=== PATIENT | male | born 1935 | race Caucasian/White ===

== ENCOUNTER 2021-08-08 16:57 | Emergency (ER) | payer OTHER ==
[~2021-08-08] VITALS: Ht 172.7 cm; Wt 77.1 kg
[2021-08-08] MEDS ORDERED: ASPIRIN (17:07)
[2021-08-08] MEDS ORDERED: ATENOLOL (17:07)
[2021-08-08] MEDS ORDERED: INSULIN (17:07)
[2021-08-08] MEDS ORDERED: HYTRIN (17:07)
[2021-08-08] MEDS ORDERED: LEVOTHYROXINE (17:07)
[2021-08-08] MEDS ORDERED: LIPITOR (17:07)
--- NOTE | 2021-08-08 17:11 | NUR ---
DR Reece at the bedside for MSE.
[2021-08-08 17:24] LABS: HEMATOCRIT 36.7 % (36.7-47.1); MEAN CORPUSCULAR HEMOGLOBIN 31.2 uug (23.8-33.4); MEAN CORPUSCULAR VOLUME 91.9 fL (73.0-96.2); PLATELET COUNT (AUTO) 211 K/uL (152-348)
[2021-08-08 17:52] LABS: CARBON DIOXIDE 25 mmol/L (21-32); CHLORIDE 102 mmol/L (98-107); CREATININE 1.6 mg/dL (0.6-1.3); GLUCOSE 144 mg/dL (74-106); POTASSIUM 4.5 mmol/L (3.5-5.1); UREA NITROGEN, BLOOD 25 mg/dL (7-18)
[2021-08-08 18:04] LABS: ALANINE AMINOTRANSFERASE 222 U/L (16-63); ALKALINE PHOSPHATASE 146 U/L (50-136); ASPARTATE AMINOTRANSFERASE 176 U/L (15-37); BILIRUBIN,DIRECT 0.3 mg/dL (0.0-0.2); BILIRUBIN,TOTAL 1.1 mg/dL (0.2-1.0); TOTAL PROTEIN, SERUM 7.1 g/dL (6.4-8.2)
[2021-08-08 18:39] LABS: *BILIRUBIN,URIN NEGATIVE (NEGATIVE); *BLOOD, URINE NEGATIVE (NEGATIVE); *CLARITY,URINE CLEAR (CLEAR); *COLOR,URINE YELLOW (YELLOW); *KETONES,URINE NEGATIVE (NEGATIVE); *UROBILINOGEN,URINE 0.2 E.U./dl (NORMAL); LEUKOCYTE ESTERASE ,URINE NEGATIVE (NEGATIVE); NITRITE, URINE NEGATIVE (NEGATIVE); PH,URINE 7.5 (5.0-8.0); UGLUCOSE TRACE (NEGATIVE)
[2021-08-08] MEDS ORDERED: CEFTRIAXONE 1 G in IV DEXTROSE 5% 50 ML IV ONE (19:00)
[2021-08-08] MEDS ORDERED: CEFTRIAXONE /D5W 50ML IVPB **ER PYXIS IV ONE (19:07)
--- NOTE | 2021-08-08 19:28 | NUR ---
Patient's brother at bedside
--- NOTE | 2021-08-08 19:42 | NUR ---
Called Fermin DOUGLASS
--- NOTE | 2021-08-08 20:32 | NUR ---
Patient and Patient's brother does not wish to proceed with medical care recommended by Dr. Rodriguez. Information given related to possible complications, up to and including , which could occur as a result of leaving the hospital at this time. Patient and patient's brother verbalizes understanding of risks involved due to leaving against medical advice.
[2021-08-08 20:36] VITALS: BP 124/61
--- NOTE | 2021-08-08 20:36 | NUR ---
Patient refused to sign AMA and left after talking to Dr Rodriguez
== END 2021-08-08 21:00 | disposition left against medical advice (07) ==
LOC: ER 16:59
DX: R41.82 Altered mental status, unspecified (principal); D72.829 Elevated white blood cell count, unspecified; N28.9 Disorder of kidney and ureter, unspecified; R74.01 Elevation of levels of liver transaminase levels; E03.9 Hypothyroidism, unspecified; I25.2 Old myocardial infarction; E78.5 Hyperlipidemia, unspecified; E11.9 Type 2 diabetes mellitus without complications; Z79.4 Long term (current) use of insulin; Z79.82 Long term (current) use of aspirin; Z79.890 Hormone replacement therapy; Z20.822 Contact with and (suspected) exposure to COVID-19
CPT/HCPCS: 36415; 70450; 80048; 80076; 81003; 83880; 84484; 85025; 85730; 87426; 93005; 96365; 99291; J0696; A4663